=== PATIENT | male | born 1945 | race Caucasian/White ===

== ENCOUNTER → 2024-08-31 | Day surgery (SDC) | payer MEDICARE ==
[~2024-08-31] VITALS: Ht 190.5 cm; Wt 81.6 kg
[~2024-08-31] MED LIST: ACETAMINOPHEN 100 ML IV ONE; ASPIRIN81 M1; BUPIVACAINE 0.5% 30 ML IV ONE; CALCIUM 600 + V1 TAB; COZAAR25 M1 PO; DOXYCYCLINE HY100 M3 PO; Dexamethasone Sodium Phospha 4 MG/ML VIAL IV ONE; FOLIC ACID0.8 MG; Ketorolac Tromethamine 30 MG/ML VIAL IV ONE; Lactated Ringer's Solution 1,000 ML IV ONE; Lactated Ringer's Solution 500 ML IV ONE; Lidocaine Hydrochloride 5 ML VIAL IV ONE; OMEGA 31000 MG; Ondansetron Hydrochloride 4 MG/2 ML VIAL IV ONE; PROPOFOL 200 MG/20 ML VIAL IV ONE; SAW PALMETTO; SEVOFLURANE 250 ML BOT INH ONE; TRAMADOL HCL50 MG PO; TYLENOL EXTRA500 MG PO; VITAMIN D1000 IU; Vancomycin Hydrochloride 1,000 MG VIAL ONE; XARELTO10 MG PO; ceFAZolin sodium/sodium chlor 10 ML IV ONE; ceFAZolin sodium/sodium chlor 20 ML IV ONE; fentaNYL CITRATE 100 MCG/2 ML VIAL IV ONE
[2024-08-31 08:15] VITALS: BP 139/56
[2024-08-31 13:50] VITALS: BP 123/58
[2024-08-31 14:05] VITALS: BP 137/59
[2024-08-31 14:20] VITALS: BP 155/58
[2024-08-31 14:34] VITALS: BP 136/61
[2024-08-31 14:50] VITALS: BP 121/57
== END | disposition home or self-care (01) ==
LOC: SDC 08-26 12:30
PROVIDERS: ATTEND Podiatrist
DX: M62.462 Contracture of muscle, left lower leg (principal); M19.072 Primary osteoarthritis, left ankle and foot; M20.5X2 Other deformities of toe(s) (acquired), left foot; M20.12 Hallux valgus (acquired), left foot; M21.072 Valgus deformity, not elsewhere classified, left ankle; I10 Essential (primary) hypertension; F10.90 Alcohol use, unspecified, uncomplicated; Z79.82 Long term (current) use of aspirin; Z79.899 Other long term (current) drug therapy; Z98.890 Other specified postprocedural states

== ENCOUNTER → 2024-09-28 | Day surgery (SDC) | payer OTHER ==
[~2024-09-28] VITALS: Ht 190.5 cm; Wt 81.6 kg
[~2024-09-28] MED LIST changes: -BUPIVACAINE 0.5% 30 ML IV ONE; +Ketamine Hydrochloride 500 MG/10 ML VIAL IV ONE; +Lactated Ringer's Solution 1,000 ML IV SCH; -Lactated Ringer's Solution 500 ML IV ONE; +Lidocaine Hydrochloride 2% 5 ML SDV IV ONE; -Lidocaine Hydrochloride 5 ML VIAL IV ONE; +MAGNESIUM SULFATE 1 GM/2 ML VIAL IV ONE; +ROCURONIUM BROMIDE 50 MG/5 ML SYRINGE IV ONE; -SEVOFLURANE 250 ML BOT INH ONE; +Succinylcholine Chloride 200 MG/10 ML SYRINGE IV ONE; -Vancomycin Hydrochloride 1,000 MG VIAL ONE; -ceFAZolin sodium/sodium chlor 10 ML IV ONE
[2024-09-28 07:00] VITALS: BP 129/93
[2024-09-28 09:52] VITALS: BP 120/98
[2024-09-28 10:07] VITALS: BP 136/67
[2024-09-28 10:22] VITALS: BP 136/53
[2024-09-28 10:37] VITALS: BP 140/60
[2024-09-28 10:52] VITALS: BP 148/69
== END | disposition home or self-care (01) ==
LOC: SDC 09-23 10:15
PROVIDERS: ATTEND Podiatrist
DX: M21.372 Foot drop, left foot (principal); M25.372 Other instability, left ankle; I10 Essential (primary) hypertension; F10.90 Alcohol use, unspecified, uncomplicated; Z87.891 Personal history of nicotine dependence; Z79.899 Other long term (current) drug therapy; Z98.890 Other specified postprocedural states

== ENCOUNTER → 2025-02-07 | Outpatient (CLI) | payer OTHER ==
[~2025-02-07] MED LIST changes: -ACETAMINOPHEN 100 ML IV ONE; -Dexamethasone Sodium Phospha 4 MG/ML VIAL IV ONE; -Ketamine Hydrochloride 500 MG/10 ML VIAL IV ONE; -Ketorolac Tromethamine 30 MG/ML VIAL IV ONE; -Lactated Ringer's Solution 1,000 ML IV ONE; -Lactated Ringer's Solution 1,000 ML IV SCH; -Lidocaine Hydrochloride 2% 5 ML SDV IV ONE; -MAGNESIUM SULFATE 1 GM/2 ML VIAL IV ONE; -Ondansetron Hydrochloride 4 MG/2 ML VIAL IV ONE; -PROPOFOL 200 MG/20 ML VIAL IV ONE; -ROCURONIUM BROMIDE 50 MG/5 ML SYRINGE IV ONE; -Succinylcholine Chloride 200 MG/10 ML SYRINGE IV ONE; -ceFAZolin sodium/sodium chlor 20 ML IV ONE; -fentaNYL CITRATE 100 MCG/2 ML VIAL IV ONE
== END | disposition home or self-care (01) ==
LOC: CT 00:32
PROVIDERS: ATTEND Podiatrist
DX: S92.902K Unspecified fracture of left foot, subsequent encounter for fracture with nonunion (principal); T85.848A Pain due to other internal prosthetic devices, implants and grafts, initial encounter; M19.072 Primary osteoarthritis, left ankle and foot; M85.872 Other specified disorders of bone density and structure, left ankle and foot; M79.89 Other specified soft tissue disorders; X58.XXXD Exposure to other specified factors, subsequent encounter; Y84.8 Other medical procedures as the cause of abnormal reaction of the patient, or of later complication, without mention of misadventure at the time of the procedure; Y92.89 Other specified places as the place of occurrence of the external cause

== ENCOUNTER → 2025-08-15 | Outpatient (CLI) | payer OTHER | END | disposition home or self-care (01) | LOC: RAD 13:49 | PROVIDERS: ATTEND Family Medicine | DX: M81.0 Age-related osteoporosis without current pathological fracture (principal) ==